=== PATIENT | female | born 1985 | race Caucasian/White ===

== ENCOUNTER 2021-10-02 20:35 | Emergency (ER) | payer OTHER ==
--- NOTE | 2021-10-02 21:01 | ERPHSYRPT ---
- History of Present Illness Time Seen by Provider: 10/02/21 20:56 Source: patient Exam Limitations: no limitations Patient Subjective Stated Complaint: pt states "my tooth has been hurting and it is making my whole left side of my face hurt." Triage Nursing Assessment: Pt presents to ED with 2 children, pt is ambulatory to ER and transfers to cot by self, pt c/o dental pain, L facial pain and L ear pain d/t dental pain for the past two days, pt has a tooth on L upper side that has broke off and a small piece of the tooth is in the gum, pt denies fever at this time Physician History: pt has hx of left upper dental carries and this is causing pain. No drainage. No fluctuatnce. no facial swelling. neck is supple swallowing OK. Digastric triangle is soft and nontender. TM normal bilaterally and pharnx is clear and without swelling. Fundi benign and neuro normal. No rashes. No hx recent trauma. Timing/Duration: gradual onset, days Severity: moderate ENT Location: dental Prearrival Treatment: over the counter meds Associated Symptoms: ear pain (L), tooth pain, No difficulty swallowing, No voice change Allergies/Adverse Reactions: loracarbef [From Lorabid] Allergy (Intermediate, Verified 10/02/21 20:42) Home Medications: Escitalopram Oxalate 20 mg PO DAILY 10/02/21 [History] Metoprolol Succinate 50 mg [Toprol Xl 50 MG] 50 mg PO DAILY 10/02/21 [History] lisinopriL [Lisinopril] 20 mg PO DAILY 10/02/21 [History] Hx Tetanus, Diphtheria Vaccination/Date Given: Yes Hx Influenza Vaccination/Date Given: No Hx Pneumococcal Vaccination/Date Given: No Immunizations Up to Date: Yes Travel Risk - International Travel Have you traveled outside of the country in past 3 weeks: No - Coronavirus Screening Are you exhibiting any of the following symptoms?: No Close contact with a COVID-19 positive Pt in past 14-21 Days: No - Vaccine Status Have you recieved a Covid-19 vaccination: No - Review of Systems Constitutional: No Fever, No Chills Eyes: No Symptoms Ears, Nose, & Throat: Ear Pain, Other (left upper dental pain) Respiratory: No Cough, No Dyspnea Cardiac: No Chest Pain, No Edema, No Syncope Abdominal/Gastrointestinal: No Abdominal Pain, No Nausea, No Vomiting, No Diarrhea Genitourinary Symptoms: No Dysuria Musculoskeletal: No Back Pain, No Neck Pain Skin: No Symptoms, No Rash Neurological: No Dizziness, No Focal Weakness, No Sensory Changes Psychological: No Symptoms Endocrine: No Symptoms Hematologic/Lymphatic: No Symptoms Immunological/Allergic: No Symptoms All Other Systems: Reviewed and Negative - Past Medical History Pertinent Past Medical History: Yes Neurological History: No Pertinent History ENT History: No Pertinent History Cardiac History: Hypertension Respiratory History: No Pertinent History Endocrine Medical History: No Pertinent History Musculoskeletal History: No Pertinent History GI Medical History: No Pertinent History History: No Pertinent History Psycho-Social History: Depression Female Reproductive Disorders: No Pertinent History - Past Surgical History Past Surgical History: Yes Neuro Surgical History: No Pertinent History Cardiac: No Pertinent History Respiratory: No Pertinent History Gastrointestinal: No Pertinent History Genitourinary: No Pertinent History Musculoskeletal: No Pertinent History Female Surgical History: Tubal Ligation - Social History Smoking Status: Light tobacco smoker Exposure to second hand smoke: No Drug Use: none Patient Lives Alone: No - Female History Hx Last Menstrual Period: 3 weeks ago Hx Now: No - Nursing Vital Signs Nursing Vital Signs: Initial Vital Signs Temperature 97.0 F 10/02/21 20:45 Pulse Rate 90 10/02/21 20:45 Respiratory Rate 18 10/02/21 20:45 Blood Pressure 116/74 10/02/21 20:45 O2 Sat by Pulse Oximetry 98 10/02/21 20:45 Pain Scale Pain Intensity 7 - Physical Exam General Appearance: no apparent distress, alert Eye Exam: bilateral eye: PERRL, EOMI Ear Exam: bilateral ear: auricle normal, canal normal, TM normal Nasal Exam: normal inspection Throat Exam: pharynx normal, dental tenderness (percussion of left upper molar reproduces pain exactly; no pointing or swelling), moist mucus membranes, No tonsillar exudate Neck Exam: supple Cardiovascular/Respiratory Exam: normal breath sounds, regular rate/rhythm Abdominal Exam: non-tender, soft Neurologic Exam: alert, oriented x 3, sensation nml, No motor deficits Skin Exam: normal color, warm, dry SpO2 Interpretation: normal SpO2: 98 O2 Delivery: Room Air - Course Nursing assessment & vital signs reviewed: Yes Ordered Tests: Medication Summary Generic Name Dose Route Start Last Admin Trade Name Freq PRN Reason Stop Dose Admin Hydrocodone Bitart/Acetaminophen 2 tab 10/02/21 21:08 Hydrocodone/Apap 5/325 Mg Tablet PO 10/02/21 21:09 SENT HOME W/ PATIENT ONE Amoxicillin/Clavulanate Potassium 875 mg 10/02/21 21:07 Amox Tr/Potassium Clavulanate 875 Mg Tablet PO 10/02/21 21:08 STAT ONE - Progress Progress: unchanged Progress Note: 10/02/21 21:06 pt jon amoxcill in past without problems so will give augmentin. Counseled pt/family regarding: diagnosis, need for follow-up - Departure Departure Disposition: Home Clinical Impression: left upper molar abscess Condition: Good Critical Care Time: No Referrals: AIDAN RUSH PA [Primary Care Provider] - Follow up/PCP as directed Instructions: Tooth Abscess (DC), Tooth Decay, Adult (DC) Additional Instructions: see the dentist monday for definitive treatment/extraction; return meantime if fever, swelling, trouble swallowing , vomiting, short of breath or other concerns. Use alleve for pain meantime. Prescriptions: Amox Tr/Potass Clav. 875 mg [Augmentin 875-125 Tablet] 875 mg PO BID #20 tablet
[2021-10-02] MEDS ORDERED: Augmentin 875-125 Tablet PO ONE (21:07)
[2021-10-02] MEDS ORDERED: NORCO 5/325 MG PO ONE (21:08)
[2021-10-02] MEDS ORDERED: NORCO 5/325 MG ONE (21:15)
[2021-10-02] MEDS ORDERED: Augmentin 875-125 Tablet ONE (21:15)
[2021-10-02 21:19] VITALS: BP 118/77; PULSE 86; O2SAT 99
== END 2021-10-02 21:34 | disposition home or self-care (01) ==
LOC: ED 20:35
DX: K04.7 Periapical abscess without sinus (principal); K02.9 Dental caries, unspecified; I10 Essential (primary) hypertension; Z72.0 Tobacco use; Z79.899 Other long term (current) drug therapy; Z28.310 Unvaccinated for COVID-19
CPT/HCPCS: 99283; A9270-GY